=== PATIENT | female | born 1940 | race Caucasian/White ===

== ENCOUNTER 2020-05-25 18:38 | Emergency (ER) | payer BC, MEDICARE ==
[2020-05-25 19:04] VITALS: BP 191/99; PULSE 84
--- NOTE | 2020-05-25 20:32 | EDM.PDOC ---
ED HPI GENERAL MEDICAL PROBLEM - General Chief Complaint: Lower Extremity Injury/Pain Stated Complaint: RT FOOT PAIN,EYE IRRITATION Time Seen by Provider: 05/25/20 19:08 Source of Information: Reports: Patient History Limitations: Reports: No Limitations - History of Present Illness INITIAL COMMENTS - FREE TEXT/NARRATIVE: 79 yo female dropped a arm load of stuff and something hit her right foot 4th toe earlier today. Pain has continued throughout the day. pt also woke yesterday with itchy eyes, increase in tearing. denies fever chills or general illness right foot Pain Score (Numeric/FACES): 7 - Related Data Allergies Allergy/AdvReac Type Severity Reaction Status Date / Time amlodipine besylate Allergy Cannot Verified 05/25/20 19:05 [From Norvasc] Remember aspirin Allergy Cannot Verified 05/25/20 19:05 Remember atenolol Allergy Cannot Verified 05/25/20 19:05 Remember chlorpheniramine Allergy Cannot Verified 05/25/20 19:05 Remember clonazepam Allergy Cannot Verified 05/25/20 19:05 Remember cyanocobalamin (vitamin B12) Allergy Cannot Verified 05/25/20 19:05 [cyanocobalamin] Remember escitalopram oxalate Allergy Cannot Verified 05/25/20 19:05 [From Lexapro] Remember fluvastatin sodium Allergy Cannot Verified 05/25/20 19:05 [From Lescol] Remember Influenza Virus Vaccines Allergy Cannot Verified 05/25/20 19:05 Remember levofloxacin [From Levaquin] Allergy Cannot Verified 05/25/20 19:05 Remember lisinopril Allergy Cannot Verified 05/25/20 19:05 Remember risedronate sodium Allergy Cannot Verified 05/25/20 19:05 Remember Home Meds: Home Meds Calcium Carbonate [Calcium] 600 mg PO BID 11/24/15 [History] Cholecalciferol (Vitamin D3) [Vitamin D] 1,000 unit PO DAILY 11/24/15 [History] Cyclobenzaprine [Flexeril] 5 mg PO TID PRN 11/24/15 [History] Pantoprazole [Protonix] 1 tab PO DAILY 11/24/15 [History] Sertraline [Zoloft] 1 tab PO DAILY 11/24/15 [History] diazePAM [Valium] 1 mg PO BID 11/24/15 [History] dilTIAZem HCL [Dilt-XR] 120 mg PO DAILY 11/24/15 [History] Potassium Chloride 1 tab PO DAILY 05/25/20 [History] Simvastatin 1 tab PO DAILY 05/25/20 [History] hydroCHLOROthiazide [Hydrochlorothiazide] 1 tab PO DAILY 05/25/20 [History] Past Medical History HEENT History: Reports: Impaired Vision Cardiovascular History: Reports: High Cholesterol, Hypertension, Other (See Below) Other Cardiovascular History: chest pain raynaud's hypokalemia Respiratory History: Reports: Other (See Below) Other Respiratory History: insomnia Gastrointestinal History: Reports: GERD, Hiatal Hernia, Jaundice Other Gastrointestinal History: reflux [employer] History: Reports: Musculoskeletal History: Reports: Osteoporosis, Other (See Below) Other Musculoskeletal History: low back painhammer toe lumbar compression fx Neurological History: Reports: Cerebral Palsy Psychiatric History: Reports: Anxiety, Depression, Other (See Below) Other Psychiatric History: Body image disorder. Controlled substance agreement signed. Endocrine/Metabolic History: Reports: Osteoporosis - Past Surgical History Musculoskeletal Surgical History: Reports: Other (See Below) Other Musculoskeletal Surgeries/Procedures:: bilat surgeries on ankles as an infant Social & Family History - Tobacco Use Smoking Status *Q: Never Smoker - Caffeine Use Caffeine Use: Reports: Coffee - Recreational Drug Use Recreational Drug Use: No Review of Systems - Review of Systems Review Of Systems: See Below Constitutional: Denies: Chills, Fever Eyes: Reports: Inflammation Nose: Denies: Congestion Respiratory: Denies: Shortness of Breath, Wheezing, Cough Cardiovascular: Denies: Chest Pain GI/Abdominal: Denies: Abdominal Pain ED EXAM, GENERAL - Physical Exam Exam: See Below Exam Limited By: No Limitations General Appearance: Alert, WD/WN, No Apparent Distress Eye Exam: Bilateral Eye: Conjunctival Injection, PERRL Neck: Normal Inspection, Supple, Non-Tender. No: Lymphadenopathy (R), Lymphadenopathy (L) Respiratory/Chest: No Respiratory Distress, Lungs Clear. No: Crackles, Rhonchi, Wheezing Cardiovascular: Regular Rate, Rhythm, No Murmur Extremities: Other (moderatly ecchymotic 4th digit, tender to palpate along 4th metatarsel) Course - Vital Signs Last Recorded V/S: Last Vital Signs Temp 36.2 C 05/25/20 19:10 Pulse 84 05/25/20 19:10 Resp 20 05/25/20 19:10 BP 191/99 H 05/25/20 19:10 Pulse Ox 95 05/25/20 19:10 - Orders/Labs/Meds Orders: Active Orders 24 hr Category Date Time Status Foot Comp Min 3V Rt [CR] Stat Exams 05/25/20 19:56 Taken - Re-Assessments/Exams Free Text/Narrative Re-Assessment/Exam: 05/25/20 20:46 nondisplaced fraction right 4th phalange. conjunctivitis will treat with antibiotic drops Departure - Departure Time of Disposition: 20:47 Disposition: Home, Self-Care 01 Condition: Good Clinical Impression: Toe fracture, right Qualifiers: Encounter type: initial encounter Toe: lesser toe Fracture type: closed Phalanx: proximal Fracture alignment: nondisplaced Qualified Code(s): S92.514A - Nondisplaced fracture of proximal phalanx of right lesser toe(s), initial encounter for closed fracture Conjunctivitis, acute Qualifiers: Acute conjunctivitis type: bacterial Laterality: bilateral Qualified Code(s): H10.33 - Unspecified acute conjunctivitis, bilateral - Discharge Information *PRESCRIPTION DRUG MONITORING PROGRAM REVIEWED*: Not Applicable *COPY OF PRESCRIPTION DRUG MONITORING REPORT IN PATIENT MARY: Not Applicable Instructions: Toe Fracture, [id number] Referrals: PCP,None [Primary Care Provider] - Forms: ED Department Discharge Additional Instructions: ice and elevate for pain control drops to eye every 4 hours while awake for 7 days Sepsis Event Note (ED) - Evaluation Sepsis Screening Result: No Definite Risk - Focused Exam Vital Signs: Vital Signs Temp Pulse Resp BP Pulse Ox 05/25/20 19:10 36.2 C 84 20 191/99 H 95 05/25/20 19:03 36.2 C 84 20 191/99 H 95 - My Orders Last 24 Hours: My Active Orders 05/25/20 19:56 Foot Comp Min 3V Rt [CR] Stat - Assessment/Plan Last 24 Hours: My Active Orders 05/25/20 19:56 Foot Comp Min 3V Rt [CR] Stat
--- NOTE | 2020-05-26 09:28 | CR ---
FOOT RIGHT 3 views CLINICAL HISTORY:Injury FINDINGS:There is a slightly angulated fracture of the distal fifth metatarsal. There is diffuse degenerative change throughout the interphalangeal joints. There is moderate to irregularity of the second MTP joint and narrowing of the first MTP joint with hallux valgus and bunion formation. There is perisplenic S. There is calcification in the Achilles tendon Impression: Fracture fifth metatarsal Arthritic changes described above
== END 2020-05-25 21:06 | disposition home or self-care (01) ==
LOC: JP.ED 18:38
DX: S92.514A Nondisplaced fracture of proximal phalanx of right lesser toe(s), initial encounter for closed fracture (principal); H10.023 Other mucopurulent conjunctivitis, bilateral; I10 Essential (primary) hypertension; K21.9 Gastro-esophageal reflux disease without esophagitis; F41.9 Anxiety disorder, unspecified; F32.9 Major depressive disorder, single episode, unspecified; E78.00 Pure hypercholesterolemia, unspecified; Z88.6 Allergy status to analgesic agent; Z88.8 Allergy status to other drugs, medicaments and biological substances; Z88.1 Allergy status to other antibiotic agents; Z88.7 Allergy status to serum and vaccine; Z79.899 Other long term (current) drug therapy; Z98.890 Other specified postprocedural states; W22.8XXA Striking against or struck by other objects, initial encounter
CPT/HCPCS: 73630-26-RT; 73630-RT; 99283; 99283-25

== ENCOUNTER 2022-02-26 08:15 | Emergency (ER) | payer MEDICARE ==
[2022-02-26 08:35] VITALS: BP 128/73; PULSE 95
== END 2022-02-26 09:40 | disposition home or self-care (01) ==
LOC: JP.ED 08:15
DX: M54.42 Lumbago with sciatica, left side (principal); G89.29 Other chronic pain; M51.36 Other intervertebral disc degeneration, lumbar region; M62.830 Muscle spasm of back; G80.1 Spastic diplegic cerebral palsy; M16.12 Unilateral primary osteoarthritis, left hip; E78.00 Pure hypercholesterolemia, unspecified; K21.9 Gastro-esophageal reflux disease without esophagitis; I10 Essential (primary) hypertension; Z79.899 Other long term (current) drug therapy; Z88.8 Allergy status to other drugs, medicaments and biological substances; Z88.6 Allergy status to analgesic agent; Z88.1 Allergy status to other antibiotic agents; Z91.048 Other nonmedicinal substance allergy status; Z88.7 Allergy status to serum and vaccine
CPT/HCPCS: 99282; 99283

== ENCOUNTER 2022-03-20 12:44 | Emergency (ER) | payer MEDICARE ==
[2022-03-20] MEDS ORDERED: Sodium Chloride 0.9% 10 ML Syringe FLUSH PRN (12:58)
[2022-03-20] MEDS ORDERED: Lactated Ringers 1,000 ML IV SCH (13:00)
[2022-03-20] MEDS ORDERED: Sodium Chloride 0.9% 50 ML IV SCH (13:15)
[2022-03-20] MEDS ORDERED: Iopamidol 612 MG/ML 100 ML Bottle IV SCH (13:15)
[2022-03-20] MEDS: Sodium Chloride 0.9% 10 ML Syringe FLUSH ONE ×2 (13:20→13:51)
[2022-03-20 13:45] LABS: TROPONIN I HIGH SENSITIVITY 48.3 pg/mL (<=60.3)
[2022-03-20 15:23] VITALS: BP 144/51; PULSE 59
== END 2022-03-20 15:25 | disposition home or self-care (01) ==
LOC: JP.ED 12:44
DX: N28.89 Other specified disorders of kidney and ureter (principal); E78.00 Pure hypercholesterolemia, unspecified; I10 Essential (primary) hypertension; K21.9 Gastro-esophageal reflux disease without esophagitis; Z79.899 Other long term (current) drug therapy; Z88.8 Allergy status to other drugs, medicaments and biological substances; Z88.6 Allergy status to analgesic agent; Z88.1 Allergy status to other antibiotic agents; Z88.7 Allergy status to serum and vaccine
CPT/HCPCS: 36415; 71045; 74177; 80053; 83605; 83690; 83880; 84484; 85025; 93005; 99285; J3490; J7120; Q9967

== ENCOUNTER 2022-03-21 13:26 | Emergency (ER) | payer MEDICARE ==
[2022-03-21 16:47] VITALS: BP 152/62; PULSE 60
== END 2022-03-21 17:58 | disposition home or self-care (01) ==
LOC: JP.ED 13:26
DX: R33.9 Retention of urine, unspecified (principal); I11.9 Hypertensive heart disease without heart failure; E78.00 Pure hypercholesterolemia, unspecified; K21.9 Gastro-esophageal reflux disease without esophagitis; Z88.8 Allergy status to other drugs, medicaments and biological substances; Z88.1 Allergy status to other antibiotic agents; Z88.7 Allergy status to serum and vaccine; Z79.899 Other long term (current) drug therapy; Z79.82 Long term (current) use of aspirin
CPT/HCPCS: 51702; 81001; 99284-25

== ENCOUNTER 2022-03-23 13:36 | Emergency (ER) | payer MEDICARE ==
[2022-03-23 17:05] VITALS: BP 151/59; PULSE 64
== END 2022-03-23 19:10 | disposition home or self-care (01) ==
LOC: JP.ED 13:36
DX: F41.9 Anxiety disorder, unspecified (principal); I10 Essential (primary) hypertension; E78.00 Pure hypercholesterolemia, unspecified; K21.9 Gastro-esophageal reflux disease without esophagitis; Z88.8 Allergy status to other drugs, medicaments and biological substances; Z88.1 Allergy status to other antibiotic agents; Z88.7 Allergy status to serum and vaccine; Z79.82 Long term (current) use of aspirin; Z79.01 Long term (current) use of anticoagulants; Z79.899 Other long term (current) drug therapy
CPT/HCPCS: 36415; 80053; 84484; 85025; 85379; 93005; 93010; 99282; 99283-25

== ENCOUNTER 2022-04-09 15:16 | Emergency (ER) | payer MEDICARE ==
[2022-04-09 15:44] VITALS: BP 172/66; PULSE 61
== END 2022-04-09 17:00 | disposition home or self-care (01) ==
LOC: JP.ED 15:16
DX: S40.022A Contusion of left upper arm, initial encounter (principal); I10 Essential (primary) hypertension; E78.00 Pure hypercholesterolemia, unspecified; K21.9 Gastro-esophageal reflux disease without esophagitis; Z88.6 Allergy status to analgesic agent; Z88.8 Allergy status to other drugs, medicaments and biological substances; Z79.82 Long term (current) use of aspirin; Z79.899 Other long term (current) drug therapy; X58.XXXA Exposure to other specified factors, initial encounter
CPT/HCPCS: 36415; 85025; 99283

== ENCOUNTER 2022-07-24 12:33 | Emergency (ER) | payer MEDICARE ==
[2022-07-24 13:33] VITALS: BP 188/75; PULSE 67
== END 2022-07-24 13:58 | disposition home or self-care (01) ==
LOC: JP.ED 12:33
DX: S60.212A Contusion of left wrist, initial encounter (principal); D68.9 Coagulation defect, unspecified; I11.9 Hypertensive heart disease without heart failure; E78.00 Pure hypercholesterolemia, unspecified; K21.9 Gastro-esophageal reflux disease without esophagitis; Z88.8 Allergy status to other drugs, medicaments and biological substances; Z88.7 Allergy status to serum and vaccine; Z88.1 Allergy status to other antibiotic agents; Z79.01 Long term (current) use of anticoagulants; Z79.82 Long term (current) use of aspirin; Z79.899 Other long term (current) drug therapy
CPT/HCPCS: 99283

== ENCOUNTER 2022-08-26 11:50 | Emergency (ER) | payer MEDICARE ==
[2022-08-26 12:09] VITALS: BP 198/63; PULSE 78
[2022-08-26] MEDS ORDERED: Sodium Chloride 0.9% 10 ML Syringe FLUSH PRN (12:29)
[2022-08-26 13:30] LABS: ESTIMATED GFR 63 mL/min (>60)
== END 2022-08-26 15:43 | disposition home or self-care (01) ==
LOC: JP.ED 11:50
DX: R42 Dizziness and giddiness (principal); I48.91 Unspecified atrial fibrillation; E78.00 Pure hypercholesterolemia, unspecified; I10 Essential (primary) hypertension; K21.9 Gastro-esophageal reflux disease without esophagitis; M81.0 Age-related osteoporosis without current pathological fracture; Z79.01 Long term (current) use of anticoagulants; Z88.8 Allergy status to other drugs, medicaments and biological substances; Z88.7 Allergy status to serum and vaccine; Z79.82 Long term (current) use of aspirin; Z79.899 Other long term (current) drug therapy
CPT/HCPCS: 36415; 80053; 81001; 83735; 84443; 85025; 93005; 99284

== ENCOUNTER 2022-11-06 11:52 | Emergency (ER) | payer MEDICARE ==
[2022-11-06 12:19] VITALS: BP 178/70; PULSE 79
[2022-11-06] MEDS ORDERED: Ketorolac 30 MG/ML SDV IM ONE (12:21)
[2022-11-06 12:56] LABS: ESTIMATED GFR 56 mL/min (>60); TROPONIN I HIGH SENSITIVITY 13.2 pg/mL (<=60.3)
== END 2022-11-06 14:07 | disposition home or self-care (01) ==
LOC: JP.ED 11:52
DX: M54.6 Pain in thoracic spine (principal); I44.7 Left bundle-branch block, unspecified; I48.91 Unspecified atrial fibrillation; E78.00 Pure hypercholesterolemia, unspecified; I10 Essential (primary) hypertension; K21.9 Gastro-esophageal reflux disease without esophagitis; Z88.8 Allergy status to other drugs, medicaments and biological substances; Z88.7 Allergy status to serum and vaccine; Z88.1 Allergy status to other antibiotic agents; Z79.01 Long term (current) use of anticoagulants; Z79.82 Long term (current) use of aspirin; Z79.899 Other long term (current) drug therapy
CPT/HCPCS: 36415; 71045; 80053; 83605; 84484; 85025; 85379; 93005; 96372; 99284; J1885; 93010; 99282

== ENCOUNTER 2022-12-01 19:50 | Emergency (ER) | payer MEDICARE ==
[2022-12-01] MEDS ORDERED: Sodium Chloride 0.9% 10 ML Syringe FLUSH PRN ×2 (20:05→20:38)
[2022-12-01 22:13] VITALS: BP 156/59; PULSE 63
== END 2022-12-01 22:25 | disposition home or self-care (01) ==
LOC: JP.ED 19:50
DX: R07.89 Other chest pain (principal); R82.71 Bacteriuria; R82.81 Pyuria; I48.91 Unspecified atrial fibrillation; E78.00 Pure hypercholesterolemia, unspecified; K21.9 Gastro-esophageal reflux disease without esophagitis; Z88.6 Allergy status to analgesic agent; Z88.1 Allergy status to other antibiotic agents; Z88.7 Allergy status to serum and vaccine; Z88.8 Allergy status to other drugs, medicaments and biological substances; Z79.82 Long term (current) use of aspirin; Z87.891 Personal history of nicotine dependence; Z79.01 Long term (current) use of anticoagulants
CPT/HCPCS: 36415; 71045; 71045-26; 80048; 81001; 83605; 83880; 84484; 85025; 86140; 87086; 93005; 93010; 99283; 99284

== ENCOUNTER 2023-01-07 16:05 | Emergency (ER) | payer MEDICARE ==
[2023-01-07] MEDS ORDERED: Acetaminophen 500 MG Tab PO ONE (17:04)
[2023-01-07 17:53] VITALS: BP 146/68; PULSE 55
== END 2023-01-07 19:18 | disposition home or self-care (01) ==
LOC: JP.ED 16:05
DX: S20.221A Contusion of right back wall of thorax, initial encounter (principal); S20.219A Contusion of unspecified front wall of thorax, initial encounter; M54.50 Low back pain, unspecified; I48.91 Unspecified atrial fibrillation; E78.00 Pure hypercholesterolemia, unspecified; I11.9 Hypertensive heart disease without heart failure; K21.9 Gastro-esophageal reflux disease without esophagitis; Z88.8 Allergy status to other drugs, medicaments and biological substances; Z88.1 Allergy status to other antibiotic agents; Z88.7 Allergy status to serum and vaccine; Z79.82 Long term (current) use of aspirin; Z79.01 Long term (current) use of anticoagulants; Z79.899 Other long term (current) drug therapy; W19.XXXA Unspecified fall, initial encounter; Y92.002 Bathroom of unspecified non-institutional (private) residence as the place of occurrence of the external cause
CPT/HCPCS: 71250; 74176; 99285; A9270; 99283

== ENCOUNTER 2023-04-29 17:21 | Emergency (ER) | payer MEDICARE ==
[2023-04-29 18:36] VITALS: BP 175/76; PULSE 57
== END 2023-04-29 22:22 | disposition home or self-care (01) ==
LOC: JP.ED 17:21
DX: S32.010A Wedge compression fracture of first lumbar vertebra, initial encounter for closed fracture (principal); E78.00 Pure hypercholesterolemia, unspecified; I48.91 Unspecified atrial fibrillation; I11.9 Hypertensive heart disease without heart failure; K21.9 Gastro-esophageal reflux disease without esophagitis; Z88.1 Allergy status to other antibiotic agents; Z88.8 Allergy status to other drugs, medicaments and biological substances; Z88.7 Allergy status to serum and vaccine; Z79.01 Long term (current) use of anticoagulants; Z79.899 Other long term (current) drug therapy; W19.XXXA Unspecified fall, initial encounter
CPT/HCPCS: 71111; 99283

== ENCOUNTER 2023-08-29 09:14 | Emergency (ER) | payer MEDICARE ==
[2023-08-29 10:35] VITALS: BP 165/84
[2023-08-29 10:51] LABS: BASOPHILS ABSOLUTE AUTO 0.08 K/uL (0.00-0.10); BASOPHILS PERCENT AUTO 1.9 % (0.1-1.3); EOSINOPHILS ABSOLUTE AUTO 0.13 K/uL (0.00-0.40); EOSINOPHILS PERCENT AUTO 3.1 % (0.0-5.4); HEMATOCRIT 41.9 % (34.3-46.0); HEMOGLOBIN 13.7 g/dL (11.2-15.5); IMMATURE GRAN PERCENT AUTO 0.2 % (0.0-0.7); LYMPHOCYTES ABSOLUTE AUTO 1.54 K/uL (0.8-3.3); LYMPHOCYTES PERCENT AUTO 36.3 % (11.4-47.7); MEAN CORPUSCULAR HEMOGLOBIN 27.6 pg (31.6-35.5); MEAN CORPUSCULAR HGB CONC 32.7 g/dL (31.6-35.5); MEAN CORPUSCULAR VOLUME 84.3 fL (81.4-99.0); MONOCYTES ABSOLUTE AUTO 0.46 K/uL (0.20-0.90); MONOCYTES PERCENT AUTO 10.8 % (3.3-12.6); NEUTROPHILS ABSOLUTE AUTO 2.02 K/uL (1.0-7.6); NEUTROPHILS PERCENT AUTO 47.7 % (40.0-78.1); PLATELET COUNT,PLT 187 K/uL (130-375); RED BLOOD CELL COUNT 4.97 M/uL (3.77-5.24); WHITE BLOOD CELL COUNT,WBC 4.2 K/uL (3.2-11.0)
[2023-08-29 10:52] LABS: IMMATURE GRAN ABSOLUTE AUTO 0.01 K/uL (0.00-0.23)
[2023-08-29 11:07] VITALS: PULSE 96
[2023-08-29 11:15] LABS: A/G RATIO 1.1 (1.2-2.2); ALANINE AMINOTRANSFERASE,ALT 11 U/L (12-78); ALBUMIN 3.5 g/dL (3.4-5.0); ALKALINE PHOSPHATASE 90 U/L (46-116); ASPARTATE AMNIOTRANSFERASE,AST 19 U/L (15-37); BILIRUBIN TOTAL 0.6 mg/dL (0.2-1.0); BLOOD UREA NITROGEN,BUN 15 mg/dL (7-18); CALCIUM 8.4 mg/dL (8.5-10.1); CARBON DIOXIDE,CO2 27 mmol/L (21-32); CHLORIDE,CL 103 mmol/L (100-108); CREATININE 0.9 mg/dL (0.6-1.0); EST CRCL DRUG DOSING (CG) 38.49 mL/min; ESTIMATED GFR 63 mL/min (>60); GLUCOSE RANDOM 101 mg/dL (74-106); POTASSIUM,K 4.4 mmol/L (3.6-5.2); PROTEIN TOTAL,TP 6.8 g/dL (6.4-8.2); SODIUM,NA 138 mmol/L (140-148); TROPONIN I HIGH SENSITIVITY 16.4 pg/mL (<=60.3)
[2023-08-29 11:23] LABS: ANION GAP 12.4 mmol/L (5.0-14.0)
== END 2023-08-29 12:12 | disposition home or self-care (01) ==
LOC: JP.ED 09:14
DX: R10.12 Left upper quadrant pain (principal); I48.91 Unspecified atrial fibrillation; E78.00 Pure hypercholesterolemia, unspecified; I10 Essential (primary) hypertension; K21.9 Gastro-esophageal reflux disease without esophagitis; Z88.8 Allergy status to other drugs, medicaments and biological substances; Z88.7 Allergy status to serum and vaccine; Z88.1 Allergy status to other antibiotic agents; Z79.01 Long term (current) use of anticoagulants; Z79.82 Long term (current) use of aspirin; Z79.899 Other long term (current) drug therapy
CPT/HCPCS: 36415; 80053; 83605; 83690; 84484; 85025; 99283; 99284

== ENCOUNTER 2023-09-03 05:00 | Emergency (ER) | payer MEDICARE ==
[2023-09-03 05:30] LABS: BASOPHILS ABSOLUTE AUTO 0.08 K/uL (0.00-0.10); BASOPHILS PERCENT AUTO 1.8 % (0.1-1.3); EOSINOPHILS ABSOLUTE AUTO 0.15 K/uL (0.00-0.40); EOSINOPHILS PERCENT AUTO 3.3 % (0.0-5.4); HEMATOCRIT 41.2 % (34.3-46.0); HEMOGLOBIN 13.2 g/dL (11.2-15.5); IMMATURE GRAN PERCENT AUTO 0.2 % (0.0-0.7); LYMPHOCYTES ABSOLUTE AUTO 1.83 K/uL (0.8-3.3); LYMPHOCYTES PERCENT AUTO 40.3 % (11.4-47.7); MEAN CORPUSCULAR HEMOGLOBIN 27.3 pg (31.6-35.5); MEAN CORPUSCULAR VOLUME 85.1 fL (81.4-99.0); MONOCYTES ABSOLUTE AUTO 0.53 K/uL (0.20-0.90); MONOCYTES PERCENT AUTO 11.7 % (3.3-12.6); NEUTROPHILS ABSOLUTE AUTO 1.94 K/uL (1.0-7.6); NEUTROPHILS PERCENT AUTO 42.7 % (40.0-78.1); PLATELET COUNT,PLT 179 K/uL (130-375); RED BLOOD CELL COUNT 4.84 M/uL (3.77-5.24); WHITE BLOOD CELL COUNT,WBC 4.5 K/uL (3.2-11.0)
[2023-09-03 05:48] LABS: IMMATURE GRAN ABSOLUTE AUTO 0.01 K/uL (0.00-0.23)
[2023-09-03 05:52] LABS: A/G RATIO 1.1 (1.2-2.2); ALANINE AMINOTRANSFERASE,ALT 10 U/L (12-78); ALBUMIN 3.4 g/dL (3.4-5.0); ALKALINE PHOSPHATASE 77 U/L (46-116); ASPARTATE AMNIOTRANSFERASE,AST 18 U/L (15-37); BILIRUBIN TOTAL 0.4 mg/dL (0.2-1.0); BLOOD UREA NITROGEN,BUN 17 mg/dL (7-18); CALCIUM 8.2 mg/dL (8.5-10.1); CARBON DIOXIDE,CO2 25 mmol/L (21-32); CHLORIDE,CL 105 mmol/L (100-108); CREATININE 0.9 mg/dL (0.6-1.0); EST CRCL DRUG DOSING (CG) 38.49 mL/min; ESTIMATED GFR 63 mL/min (>60); GLUCOSE RANDOM 107 mg/dL (74-106); POTASSIUM,K 4.3 mmol/L (3.6-5.2); PROTEIN TOTAL,TP 6.6 g/dL (6.4-8.2); SODIUM,NA 139 mmol/L (140-148); TROPONIN I HIGH SENSITIVITY 19.3 pg/mL (<=60.3)
[2023-09-03 05:58] LABS: ANION GAP 13.3 mmol/L (5.0-14.0); C-REACTIVE PROTEIN < 0.05 mg/dL (0.0-0.3)
[2023-09-03] MEDS ORDERED: Lidocaine 4% 1 each Patch TOP ONE (06:11)
[2023-09-03 06:30] VITALS: BP 173/67; PULSE 72
== END 2023-09-03 06:29 | disposition home or self-care (01) ==
LOC: JP.ED 05:00
DX: R07.89 Other chest pain (principal); I48.91 Unspecified atrial fibrillation; I10 Essential (primary) hypertension; E78.00 Pure hypercholesterolemia, unspecified; K21.9 Gastro-esophageal reflux disease without esophagitis; Z79.01 Long term (current) use of anticoagulants; Z88.8 Allergy status to other drugs, medicaments and biological substances; Z88.7 Allergy status to serum and vaccine; Z88.1 Allergy status to other antibiotic agents; Z79.899 Other long term (current) drug therapy; Z79.82 Long term (current) use of aspirin
CPT/HCPCS: 36415; 71046; 71046-26; 80053; 84484; 85025; 86140; 93005; 93010; 99283; 99285

== ENCOUNTER 2023-09-05 02:53 | Emergency (ER) | payer MEDICARE ==
[2023-09-05] MEDS ORDERED: Methocarbamol 500 MG Tab PO ONE (03:03)
[2023-09-05 03:28] VITALS: BP 169/103; PULSE 74
== END 2023-09-05 04:10 | disposition home or self-care (01) ==
LOC: JP.ED 02:53
DX: M54.6 Pain in thoracic spine (principal); M25.512 Pain in left shoulder; I10 Essential (primary) hypertension; E78.00 Pure hypercholesterolemia, unspecified; K21.9 Gastro-esophageal reflux disease without esophagitis; M19.90 Unspecified osteoarthritis, unspecified site; Z79.899 Other long term (current) drug therapy; Z79.82 Long term (current) use of aspirin; Z79.01 Long term (current) use of anticoagulants; Z88.7 Allergy status to serum and vaccine; Z88.6 Allergy status to analgesic agent; Z88.1 Allergy status to other antibiotic agents; Z88.8 Allergy status to other drugs, medicaments and biological substances; Z88.5 Allergy status to narcotic agent
CPT/HCPCS: 93005; 93010; 99284; A9270-GY

== ENCOUNTER 2024-04-21 12:06 | Emergency (ER) | payer MEDICARE ==
[2024-04-21 13:26] VITALS: BP 164/61; PULSE 63
[2024-04-21 15:18] LABS: BASOPHILS ABSOLUTE AUTO 0.06 K/uL (0.00-0.10); EOSINOPHILS ABSOLUTE AUTO 0.08 K/uL (0.00-0.40); EOSINOPHILS PERCENT AUTO 1.3 % (0.0-5.4); HEMATOCRIT 38.4 % (34.3-46.0); HEMOGLOBIN 12.5 g/dL (11.2-15.5); IMMATURE GRAN PERCENT AUTO 0.2 % (0.0-0.7); LYMPHOCYTES ABSOLUTE AUTO 1.94 K/uL (0.8-3.3); LYMPHOCYTES PERCENT AUTO 31.5 % (11.4-47.7); MEAN CORPUSCULAR HEMOGLOBIN 26.4 pg (31.6-35.5); MEAN CORPUSCULAR HGB CONC 32.6 g/dL (31.6-35.5); MEAN CORPUSCULAR VOLUME 81.2 fL (81.4-99.0); MONOCYTES ABSOLUTE AUTO 0.61 K/uL (0.20-0.90); MONOCYTES PERCENT AUTO 9.9 % (3.3-12.6); NEUTROPHILS ABSOLUTE AUTO 3.46 K/uL (1.0-7.6); NEUTROPHILS PERCENT AUTO 56.1 % (40.0-78.1); PLATELET COUNT,PLT 193 K/uL (130-375); RED BLOOD CELL COUNT 4.73 M/uL (3.77-5.24); WHITE BLOOD CELL COUNT,WBC 6.2 K/uL (3.2-11.0)
[2024-04-21 15:19] LABS: IMMATURE GRAN ABSOLUTE AUTO 0.01 K/uL (0.00-0.23)
[2024-04-21] MEDS: Acetaminophen 500 MG Tab PO ONE (15:37)
[2024-04-21 15:39] LABS: INR 1.1; PTT,PARTIAL THROMBOPLSTIN TIME 27.6 sec (21.8-27.3)
== END 2024-04-21 16:39 | disposition home or self-care (01) ==
LOC: JP.ED 12:06
DX: S80.01XA Contusion of right knee, initial encounter (principal); I10 Essential (primary) hypertension; I48.91 Unspecified atrial fibrillation; E78.00 Pure hypercholesterolemia, unspecified; K21.9 Gastro-esophageal reflux disease without esophagitis; Z79.82 Long term (current) use of aspirin; Z79.01 Long term (current) use of anticoagulants; Z79.899 Other long term (current) drug therapy; Z88.7 Allergy status to serum and vaccine; Z88.1 Allergy status to other antibiotic agents; Z88.8 Allergy status to other drugs, medicaments and biological substances; Z88.6 Allergy status to analgesic agent; W01.0XXA Fall on same level from slipping, tripping and stumbling without subsequent striking against object, initial encounter
CPT/HCPCS: 36415; 73562; 85025; 85610; 85730; 99283; A9270

== ENCOUNTER 2024-04-22 18:44 | Emergency (ER) | payer MEDICARE ==
[2024-04-22 19:14] VITALS: BP 177/56; PULSE 63
[2024-04-22 19:35] LABS: BASOPHILS ABSOLUTE AUTO 0.06 K/uL (0.00-0.10); BASOPHILS PERCENT AUTO 1.1 % (0.1-1.3); EOSINOPHILS PERCENT AUTO 1.8 % (0.0-5.4); IMMATURE GRAN ABSOLUTE AUTO 0.01 K/uL (0.00-0.23); IMMATURE GRAN PERCENT AUTO 0.2 % (0.0-0.7); LYMPHOCYTES PERCENT AUTO 39.1 % (11.4-47.7); MEAN CORPUSCULAR HEMOGLOBIN 26.1 pg (31.6-35.5); MEAN CORPUSCULAR HGB CONC 32.4 g/dL (31.6-35.5); MEAN CORPUSCULAR VOLUME 80.8 fL (81.4-99.0); MONOCYTES ABSOLUTE AUTO 0.63 K/uL (0.20-0.90); MONOCYTES PERCENT AUTO 11.2 % (3.3-12.6); NEUTROPHILS ABSOLUTE AUTO 2.62 K/uL (1.0-7.6); NEUTROPHILS PERCENT AUTO 46.6 % (40.0-78.1); PLATELET COUNT,PLT 176 K/uL (130-375); RED BLOOD CELL COUNT 4.21 M/uL (3.77-5.24); WHITE BLOOD CELL COUNT,WBC 5.6 K/uL (3.2-11.0)
== END 2024-04-22 20:11 | disposition home or self-care (01) ==
LOC: JP.ED 18:44
DX: S80.01XA Contusion of right knee, initial encounter (principal); I48.91 Unspecified atrial fibrillation; E78.00 Pure hypercholesterolemia, unspecified; I10 Essential (primary) hypertension; K21.9 Gastro-esophageal reflux disease without esophagitis; Z79.01 Long term (current) use of anticoagulants; Z79.82 Long term (current) use of aspirin; Z79.899 Other long term (current) drug therapy; Z88.8 Allergy status to other drugs, medicaments and biological substances; Z88.6 Allergy status to analgesic agent; W19.XXXA Unspecified fall, initial encounter
CPT/HCPCS: 36415; 85025; 99282; 99283

== ENCOUNTER 2024-05-18 12:23 | Emergency (ER) | payer MEDICARE ==
[2024-05-18 12:47] VITALS: BP 144/57; PULSE 52
[2024-05-18] MEDS: traMADol 50 MG Tab PO ONE (13:31)
== END 2024-05-18 13:49 | disposition home or self-care (01) ==
LOC: JP.ED 12:23
DX: S80.01XA Contusion of right knee, initial encounter (principal); M17.11 Unilateral primary osteoarthritis, right knee; I10 Essential (primary) hypertension; K21.9 Gastro-esophageal reflux disease without esophagitis; E78.00 Pure hypercholesterolemia, unspecified; Z88.8 Allergy status to other drugs, medicaments and biological substances; Z88.7 Allergy status to serum and vaccine; Z79.82 Long term (current) use of aspirin; Z79.899 Other long term (current) drug therapy; W18.40XA Slipping, tripping and stumbling without falling, unspecified, initial encounter
CPT/HCPCS: 99283; A9270

== ENCOUNTER 2024-12-23 17:47 | Emergency (ER) | payer MEDICARE, OTHER ==
[2024-12-23 18:41] VITALS: BP 144/66; PULSE 58
== END 2024-12-23 19:10 | disposition home or self-care (01) ==
LOC: JP.ED 17:47
DX: J06.9 Acute upper respiratory infection, unspecified (principal); B97.89 Other viral agents as the cause of diseases classified elsewhere; I10 Essential (primary) hypertension; K21.9 Gastro-esophageal reflux disease without esophagitis; E78.00 Pure hypercholesterolemia, unspecified; Z88.1 Allergy status to other antibiotic agents; Z88.7 Allergy status to serum and vaccine; Z88.8 Allergy status to other drugs, medicaments and biological substances; Z79.82 Long term (current) use of aspirin; Z79.899 Other long term (current) drug therapy; Z87.891 Personal history of nicotine dependence
CPT/HCPCS: 99284

== ENCOUNTER 2024-12-25 16:13 | Emergency (ER) | payer MEDICARE ==
[2024-12-25 17:21] LABS: BASOPHILS ABSOLUTE AUTO 0.06 K/uL (0.00-0.10); BASOPHILS PERCENT AUTO 1.2 % (0.1-1.3); EOSINOPHILS ABSOLUTE AUTO 0.08 K/uL (0.00-0.40); EOSINOPHILS PERCENT AUTO 1.5 % (0.0-5.4); HEMOGLOBIN 12.1 g/dL (11.2-15.5); IMMATURE GRAN PERCENT AUTO 0.2 % (0.0-0.7); LYMPHOCYTES ABSOLUTE AUTO 1.94 K/uL (0.8-3.3); LYMPHOCYTES PERCENT AUTO 37.4 % (11.4-47.7); MEAN CORPUSCULAR HEMOGLOBIN 26.2 pg (31.6-35.5); MEAN CORPUSCULAR HGB CONC 31.8 g/dL (31.6-35.5); MEAN CORPUSCULAR VOLUME 82.3 fL (81.4-99.0); MONOCYTES ABSOLUTE AUTO 0.68 K/uL (0.20-0.90); MONOCYTES PERCENT AUTO 13.1 % (3.3-12.6); NEUTROPHILS ABSOLUTE AUTO 2.42 K/uL (1.0-7.6); NEUTROPHILS PERCENT AUTO 46.6 % (40.0-78.1); PLATELET COUNT,PLT 182 K/uL (130-375); RED BLOOD CELL COUNT 4.62 M/uL (3.77-5.24); WHITE BLOOD CELL COUNT,WBC 5.2 K/uL (3.2-11.0)
[2024-12-25 17:22] LABS: IMMATURE GRAN ABSOLUTE AUTO 0.01 K/uL (0.00-0.23)
[2024-12-25] MEDS: guaiFENesin 600 MG Tab.ER PO ONE (17:25)
[2024-12-25 17:36] LABS: ANION GAP 11.1 mmol/L (5.0-14.0); CALCIUM 8.9 mg/dL (8.5-10.1); CREATININE 0.9 mg/dL (0.6-1.0); EST CRCL DRUG DOSING (CG) 38.75 mL/min; POTASSIUM,K 4.1 mmol/L (3.6-5.2)
[2024-12-25 17:45] VITALS: BP 164/66; PULSE 52
== END 2024-12-25 17:53 | disposition home or self-care (01) ==
LOC: JP.ED 16:13
DX: R09.82 Postnasal drip (principal); I48.91 Unspecified atrial fibrillation; I10 Essential (primary) hypertension; E78.00 Pure hypercholesterolemia, unspecified; Z79.899 Other long term (current) drug therapy; Z79.01 Long term (current) use of anticoagulants; Z79.82 Long term (current) use of aspirin; Z88.8 Allergy status to other drugs, medicaments and biological substances; Z88.5 Allergy status to narcotic agent; Z88.7 Allergy status to serum and vaccine; Z87.891 Personal history of nicotine dependence
CPT/HCPCS: 36415; 71046; 80048; 85025; 87428; 99285; A9270; 99283

== ENCOUNTER 2025-01-05 11:34 | Emergency (ER) | payer MEDICARE ==
[2025-01-05 12:25] VITALS: BP 169/55; PULSE 76
== END 2025-01-05 12:22 | disposition home or self-care (01) ==
LOC: JP.ED 11:34
DX: R09.82 Postnasal drip (principal); I48.91 Unspecified atrial fibrillation; E78.00 Pure hypercholesterolemia, unspecified; K21.9 Gastro-esophageal reflux disease without esophagitis; Z79.899 Other long term (current) drug therapy; Z79.82 Long term (current) use of aspirin; Z79.01 Long term (current) use of anticoagulants; Z88.8 Allergy status to other drugs, medicaments and biological substances; Z88.7 Allergy status to serum and vaccine; Z88.1 Allergy status to other antibiotic agents
CPT/HCPCS: 87428-QW; 99283

== ENCOUNTER 2025-01-17 09:44 | Emergency (ER) | payer MEDICARE ==
[2025-01-17 10:20] VITALS: BP 133/66; PULSE 105
[2025-01-17] MEDS ORDERED: Sodium Chloride 0.9% 10 ML Syringe FLUSH PRN (10:51)
[2025-01-17 11:05] LABS: BASOPHILS ABSOLUTE AUTO 0.04 K/uL (0.00-0.10); BASOPHILS PERCENT AUTO 0.5 % (0.1-1.3); EOSINOPHILS PERCENT AUTO 1.4 % (0.0-5.4); HEMATOCRIT 41.5 % (34.3-46.0); IMMATURE GRAN ABSOLUTE AUTO 0.05 K/uL (0.00-0.23); IMMATURE GRAN PERCENT AUTO 0.7 % (0.0-0.7); LYMPHOCYTES ABSOLUTE AUTO 1.63 K/uL (0.8-3.3); LYMPHOCYTES PERCENT AUTO 22.3 % (11.4-47.7); MEAN CORPUSCULAR HEMOGLOBIN 26.7 pg (31.6-35.5); MEAN CORPUSCULAR HGB CONC 31.3 g/dL (31.6-35.5); MEAN CORPUSCULAR VOLUME 85.4 fL (81.4-99.0); MONOCYTES ABSOLUTE AUTO 0.89 K/uL (0.20-0.90); MONOCYTES PERCENT AUTO 12.2 % (3.3-12.6); NEUTROPHILS PERCENT AUTO 62.9 % (40.0-78.1); PLATELET COUNT,PLT 206 K/uL (130-375); RED BLOOD CELL COUNT 4.86 M/uL (3.77-5.24); WHITE BLOOD CELL COUNT,WBC 7.3 K/uL (3.2-11.0)
[2025-01-17 11:34] LABS: A/G RATIO 1.1 (1.2-2.2); ALANINE AMINOTRANSFERASE,ALT 17 U/L (12-78); ALBUMIN 3.2 g/dL (3.4-5.0); ALKALINE PHOSPHATASE 63 U/L (46-116); ASPARTATE AMNIOTRANSFERASE,AST 12 U/L (15-37); BILIRUBIN TOTAL 0.4 mg/dL (0.2-1.0); BLOOD UREA NITROGEN,BUN 18 mg/dL (7-18); CALCIUM 8.8 mg/dL (8.5-10.1); CARBON DIOXIDE,CO2 27 mmol/L (21-32); CHLORIDE,CL 109 mmol/L (100-108); CREATININE 1.1 mg/dL (0.6-1.0); ESTIMATED GFR 49 mL/min (>60); GLUCOSE RANDOM 138 mg/dL (74-106); POTASSIUM,K 5.1 mmol/L (3.6-5.2); PRO B-TYPE NATRIUR PEPT,BNPPRO 2499 pg/mL (5-450); SODIUM,NA 143 mmol/L (140-148); TROPONIN I HIGH SENSITIVITY 14.6 pg/mL (<=60.3)
[2025-01-17 11:35] LABS: ANION GAP 12.1 mmol/L (5.0-14.0)
== END 2025-01-17 13:05 | disposition home or self-care (01) ==
LOC: JP.ED 09:44
DX: I48.19 Other persistent atrial fibrillation (principal); E87.79 Other fluid overload; I10 Essential (primary) hypertension; E78.00 Pure hypercholesterolemia, unspecified; K21.9 Gastro-esophageal reflux disease without esophagitis; Z88.6 Allergy status to analgesic agent; Z88.8 Allergy status to other drugs, medicaments and biological substances; Z88.7 Allergy status to serum and vaccine; Z79.82 Long term (current) use of aspirin; Z79.01 Long term (current) use of anticoagulants; Z79.899 Other long term (current) drug therapy
CPT/HCPCS: 36415; 71046; 71046-26; 80053; 83605; 83880; 84484; 85025; 85379; 99284; 99285

== ENCOUNTER 2025-08-07 10:37 | Emergency (ER) | payer MEDICARE ==
[2025-08-07 10:55] LABS: BASOPHILS ABSOLUTE AUTO 0.08 K/uL (0.00-0.10); BASOPHILS PERCENT AUTO 1.4 % (0.1-1.3); EOSINOPHILS ABSOLUTE AUTO 0.12 K/uL (0.00-0.40); EOSINOPHILS PERCENT AUTO 2.1 % (0.0-5.4); IMMATURE GRAN ABSOLUTE AUTO 0.02 K/uL (0.00-0.23); IMMATURE GRAN PERCENT AUTO 0.3 % (0.0-0.7); LYMPHOCYTES ABSOLUTE AUTO 2.29 K/uL (0.8-3.3); LYMPHOCYTES PERCENT AUTO 39.8 % (11.4-47.7); MONOCYTES ABSOLUTE AUTO 0.66 K/uL (0.20-0.90); MONOCYTES PERCENT AUTO 11.5 % (3.3-12.6); NEUTROPHILS ABSOLUTE AUTO 2.58 K/uL (1.0-7.6); NEUTROPHILS PERCENT AUTO 44.9 % (40.0-78.1); PLATELET COUNT,PLT 233 K/uL (130-375); RED BLOOD CELL COUNT 4.63 M/uL (3.77-5.24); WHITE BLOOD CELL COUNT,WBC 5.8 K/uL (3.2-11.0)
[2025-08-07 11:21] LABS: A/G RATIO 1.2 (1.2-2.2); ALANINE AMINOTRANSFERASE,ALT 20 U/L (12-78); ASPARTATE AMNIOTRANSFERASE,AST 18 U/L (15-37); BILIRUBIN TOTAL 0.4 mg/dL (0.2-1.0); BLOOD UREA NITROGEN,BUN 16 mg/dL (7-18); CARBON DIOXIDE,CO2 24 mmol/L (21-32); CHLORIDE,CL 107 mmol/L (100-108); CREATININE 0.9 mg/dL (0.6-1.0); EST CRCL DRUG DOSING (CG) 40.38 mL/min; ESTIMATED GFR 62 mL/min (>60); GLUCOSE RANDOM 120 mg/dL (74-106); POTASSIUM,K 4.2 mmol/L (3.6-5.2); PROTEIN TOTAL,TP 6.5 g/dL (6.4-8.2); SODIUM,NA 139 mmol/L (140-148)
[2025-08-07 11:22] LABS: LACTIC ACID 2.2 mmol/L (0.4-2.0)
[2025-08-07] MEDS: Iopamidol 612 MG/ML 100 ML Bottle IV SCH (12:02)
[2025-08-07] MEDS: Sodium Chloride 0.9% 10 ML Syringe FLUSH ONE (12:02)
[2025-08-07] MEDS: Ondansetron 4 MG/2 ML SDV IVPUSH ONE (14:58)
[2025-08-07 15:16] VITALS: BP 156/48; PULSE 59
== END 2025-08-07 15:07 | disposition other institution (70) ==
LOC: JP.ED 10:37
DX: S36.039A Unspecified laceration of spleen, initial encounter (principal); E86.0 Dehydration; I10 Essential (primary) hypertension; K21.9 Gastro-esophageal reflux disease without esophagitis; E78.00 Pure hypercholesterolemia, unspecified; Z88.1 Allergy status to other antibiotic agents; Z88.7 Allergy status to serum and vaccine; Z88.8 Allergy status to other drugs, medicaments and biological substances; Z79.82 Long term (current) use of aspirin; Z79.899 Other long term (current) drug therapy; X58.XXXA Exposure to other specified factors, initial encounter
CPT/HCPCS: 36415; 74177; 80053; 83605; 83690; 84484; 85025; 86140; 86850; 86900; 86901; 93005; 96361; 96374; 99285; J2405; J7030; Q9967; J1171

== ENCOUNTER 2025-08-15 08:32 | Emergency (ER) | payer MEDICARE ==
[2025-08-15 10:48] LABS: APPEARANCE,URINE CLOUDY (CLEAR); GLUCOSE,URINE NEGATIVE (NEGATIVE); OCCULT BLOOD,URINE LARGE (NEGATIVE)
[2025-08-15] MEDS: Lidocaine 2% Jelly 10 ML Urojet MUCMEM ONE (11:08)
[2025-08-15 11:36] LABS: SQUAMOUS EPITHELIAL CELLS,UR NOT SEEN /HPF; UROTHELIAL CELLS,URINE NOT SEEN /HPF
[2025-08-15 12:13] VITALS: BP 139/49; PULSE 75
== END 2025-08-15 12:18 | disposition home or self-care (01) ==
LOC: JP.ED 08:32
DX: N39.0 Urinary tract infection, site not specified (principal); Z46.6 Encounter for fitting and adjustment of urinary device; I48.91 Unspecified atrial fibrillation; E78.00 Pure hypercholesterolemia, unspecified; I10 Essential (primary) hypertension; K21.9 Gastro-esophageal reflux disease without esophagitis; Z79.899 Other long term (current) drug therapy; Z79.82 Long term (current) use of aspirin; Z88.8 Allergy status to other drugs, medicaments and biological substances; Z88.7 Allergy status to serum and vaccine; Z91.048 Other nonmedicinal substance allergy status
CPT/HCPCS: 51702; 81001; 96372; 99283; J0696; J2003

== ENCOUNTER 2025-08-16 00:12 | Emergency (ER) | payer MEDICARE ==
[2025-08-16 01:14] VITALS: BP 138/67; PULSE 67
== END 2025-08-16 01:54 | disposition home or self-care (01) ==
LOC: JP.ED 00:12
DX: G25.81 Restless legs syndrome (principal); I10 Essential (primary) hypertension; I48.91 Unspecified atrial fibrillation; E78.00 Pure hypercholesterolemia, unspecified; K21.9 Gastro-esophageal reflux disease without esophagitis; Z79.899 Other long term (current) drug therapy; Z88.8 Allergy status to other drugs, medicaments and biological substances
CPT/HCPCS: 99283

== ENCOUNTER 2025-08-21 09:30 | Emergency (ER) | payer MEDICARE ==
[2025-08-21 10:10] LABS: BASOPHILS ABSOLUTE AUTO 0.06 K/uL (0.00-0.10); BASOPHILS PERCENT AUTO 1.2 % (0.1-1.3); EOSINOPHILS ABSOLUTE AUTO 0.13 K/uL (0.00-0.40); EOSINOPHILS PERCENT AUTO 2.7 % (0.0-5.4); IMMATURE GRAN PERCENT AUTO 0.4 % (0.0-0.7); LYMPHOCYTES ABSOLUTE AUTO 1.01 K/uL (0.8-3.3); LYMPHOCYTES PERCENT AUTO 20.6 % (11.4-47.7); MONOCYTES ABSOLUTE AUTO 0.55 K/uL (0.20-0.90); MONOCYTES PERCENT AUTO 11.2 % (3.3-12.6); NEUTROPHILS ABSOLUTE AUTO 3.13 K/uL (1.0-7.6); NEUTROPHILS PERCENT AUTO 63.9 % (40.0-78.1); PLATELET COUNT,PLT 355 K/uL (130-375); RED BLOOD CELL COUNT 3.50 M/uL (3.77-5.24); WHITE BLOOD CELL COUNT,WBC 4.9 K/uL (3.2-11.0)
[2025-08-21 10:22] LABS: IMMATURE GRAN ABSOLUTE AUTO 0.02 K/uL (0.00-0.23)
[2025-08-21 10:36] LABS: A/G RATIO 0.9 (1.2-2.2); ALANINE AMINOTRANSFERASE,ALT 21 U/L (12-78); ASPARTATE AMNIOTRANSFERASE,AST 23 U/L (15-37); BILIRUBIN TOTAL 0.5 mg/dL (0.2-1.0); BLOOD UREA NITROGEN,BUN 13 mg/dL (7-18); CARBON DIOXIDE,CO2 26 mmol/L (21-32); CHLORIDE,CL 103 mmol/L (100-108); CREATININE 0.8 mg/dL (0.6-1.0); EST CRCL DRUG DOSING (CG) 41.76 mL/min; ESTIMATED GFR 72 mL/min (>60); GLUCOSE RANDOM 98 mg/dL (74-106); POTASSIUM,K 4.1 mmol/L (3.6-5.2); PROTEIN TOTAL,TP 6.3 g/dL (6.4-8.2); SODIUM,NA 137 mmol/L (140-148)
[2025-08-21 10:41] VITALS: BP 141/51; PULSE 61
[2025-08-21 13:13] LABS: APPEARANCE,URINE CLEAR (CLEAR); GLUCOSE,URINE NEGATIVE (NEGATIVE); OCCULT BLOOD,URINE NEGATIVE (NEGATIVE)
[2025-08-21 13:25] LABS: SQUAMOUS EPITHELIAL CELLS,UR NOT SEEN /HPF
== END 2025-08-21 14:01 | disposition home or self-care (01) ==
LOC: JP.ED 09:30
DX: R10.12 Left upper quadrant pain (principal); I48.91 Unspecified atrial fibrillation; I10 Essential (primary) hypertension; E78.00 Pure hypercholesterolemia, unspecified; K21.9 Gastro-esophageal reflux disease without esophagitis; Z88.8 Allergy status to other drugs, medicaments and biological substances; Z88.7 Allergy status to serum and vaccine; Z79.899 Other long term (current) drug therapy; Z79.01 Long term (current) use of anticoagulants; Z79.82 Long term (current) use of aspirin
CPT/HCPCS: 36415; 74177; 80053; 81001; 85025; 93971; 96361; 96374; 96376; 99284; J7030; J1171

== ENCOUNTER 2025-08-28 22:38 | Emergency (ER) | payer MEDICARE ==
[2025-08-29 00:12] VITALS: PULSE 59
[2025-08-29 01:36] LABS: APPEARANCE,URINE CLOUDY (CLEAR); GLUCOSE,URINE NEGATIVE (NEGATIVE); OCCULT BLOOD,URINE LARGE (NEGATIVE)
[2025-08-29 01:39] LABS: SQUAMOUS EPITHELIAL CELLS,UR FEW /HPF; UROTHELIAL CELLS,URINE NOT SEEN /HPF
[2025-08-29 02:10] VITALS: BP 73/48
== END 2025-08-29 02:11 | disposition home or self-care (01) ==
LOC: JP.ED 22:38
DX: T83.9XXA Unspecified complication of genitourinary prosthetic device, implant and graft, initial encounter (principal); I10 Essential (primary) hypertension; I48.91 Unspecified atrial fibrillation; E78.00 Pure hypercholesterolemia, unspecified; K21.9 Gastro-esophageal reflux disease without esophagitis; Z88.8 Allergy status to other drugs, medicaments and biological substances; Z79.899 Other long term (current) drug therapy; Z87.891 Personal history of nicotine dependence
CPT/HCPCS: 81001; 99283

== ENCOUNTER 2025-08-30 23:33 | Emergency (ER) | payer MEDICARE ==
[2025-08-31 00:37] VITALS: BP 128/54; PULSE 58
== END 2025-08-31 00:37 | disposition home or self-care (01) ==
LOC: JP.ED 23:33
DX: Z96.0 Presence of urogenital implants (principal); I48.91 Unspecified atrial fibrillation; I10 Essential (primary) hypertension; K21.9 Gastro-esophageal reflux disease without esophagitis; E78.00 Pure hypercholesterolemia, unspecified; Z79.899 Other long term (current) drug therapy; Z79.01 Long term (current) use of anticoagulants; Z79.82 Long term (current) use of aspirin; Z88.8 Allergy status to other drugs, medicaments and biological substances; Z88.1 Allergy status to other antibiotic agents; Z88.7 Allergy status to serum and vaccine; Z88.5 Allergy status to narcotic agent
CPT/HCPCS: 99283

== ENCOUNTER 2025-09-03 01:54 | Emergency (ER) | payer MEDICARE ==
[2025-09-03] MEDS: Phenazopyridine 95 MG Tab PO ONE (02:25)
[2025-09-03 02:51] VITALS: BP 123/59; PULSE 58
== END 2025-09-03 03:06 | disposition home or self-care (01) ==
LOC: JP.ED 01:54
DX: T83.091A Other mechanical complication of indwelling urethral catheter, initial encounter (principal); I48.91 Unspecified atrial fibrillation; E78.00 Pure hypercholesterolemia, unspecified; I10 Essential (primary) hypertension; K21.9 Gastro-esophageal reflux disease without esophagitis; Z88.8 Allergy status to other drugs, medicaments and biological substances; Z88.7 Allergy status to serum and vaccine; Z88.1 Allergy status to other antibiotic agents; Z79.899 Other long term (current) drug therapy; Z79.82 Long term (current) use of aspirin
CPT/HCPCS: 99283; A9270

== ENCOUNTER 2025-09-04 08:34 | Emergency (ER) | payer MEDICARE ==
[2025-09-04 09:18] VITALS: BP 163/58; PULSE 67
[2025-09-04 10:48] LABS: APPEARANCE,URINE CLEAR (CLEAR); GLUCOSE,URINE NEGATIVE (NEGATIVE); OCCULT BLOOD,URINE SMALL (NEGATIVE)
[2025-09-04 10:58] LABS: SQUAMOUS EPITHELIAL CELLS,UR RARE /HPF; UROTHELIAL CELLS,URINE NOT SEEN /HPF
== END 2025-09-04 11:20 | disposition home or self-care (01) ==
LOC: JP.ED 08:34
DX: T83.511A Infection and inflammatory reaction due to indwelling urethral catheter, initial encounter (principal); N39.0 Urinary tract infection, site not specified; I10 Essential (primary) hypertension; I48.91 Unspecified atrial fibrillation; E78.00 Pure hypercholesterolemia, unspecified; Z88.7 Allergy status to serum and vaccine; Z88.8 Allergy status to other drugs, medicaments and biological substances; Z79.01 Long term (current) use of anticoagulants; Z79.82 Long term (current) use of aspirin; Z79.899 Other long term (current) drug therapy
CPT/HCPCS: 51702; 81001; 99283